=== PATIENT | female | born 1935 | race Caucasian/White ===

== ENCOUNTER 2023-10-06 15:38 | Inpatient (IN) ==
[2023-10-06 18:23] LABS: BASOPHILS # (AUTO) 0.1 X10^3/uL (0.0-0.1); BASOPHILS % (AUTO) 0.6 % (0.2-1.0); EOSINOPHILS # (AUTO) 0.1 x10^3/uL (0.0-0.2); EOSINOPHILS % (AUTO) 0.6 % (0.9-2.9); HEMATOCRIT 36.8 % (36.0-47.0); HEMOGLOBIN 12.2 g/dL (12.0-16.0); LYMPHOCYTES # (AUTO) 1.5 X10^3/uL (1.3-2.9); LYMPHOCYTES % (AUTO) 17.6 % (21.0-51.0); MEAN CORPUSCULAR HEMOGLOBIN 26.2 pg (27.0-34.0); MEAN CORPUSCULAR HGB CONC 33.2 g/dL (33.0-35.0); MEAN CORPUSCULAR VOLUME 78.8 fL (80.0-100.0); MEAN PLATELET VOLUME 7.4 fL (7.4-11.0); MONOCYTES # (AUTO) 0.6 x10^3/uL (0.3-0.8); MONOCYTES % (AUTO) 6.7 % (0.0-13.0); NEUTROPHILS # (AUTO) 6.4 x10^3/uL (2.2-4.8); NEUTROPHILS % (AUTO) 74.5 % (42.0-75.0); PLATELET COUNT 308 X10^3/uL (150.0-450.0); RED BLOOD COUNT 4.66 X10^6/uL (3.5-5.4); RED CELL DISTRIBUTION WIDTH 14.9 % (11.6-16.5); WHITE BLOOD COUNT 8.6 X10^3/uL (3.6-10.0)
[2023-10-06 18:31] LABS: ALANINE AMINOTRANSFERASE 21 Units/L (12-78); ALBUMIN 3.4 g/dL (3.4-5.0); ALKALINE PHOSPHATASE 104 Units/L (46-116); ASPARTATE AMINO TRANSFERASE 16 Units/L (15-37); BLOOD UREA NITROGEN 18 mg/dL (7-18); CALCIUM 9.9 mg/dL (8.5-10.1); CARBON DIOXIDE 28.8 mmol/L (21-32); CHLORIDE 102 mmol/L (98-107); COR NA(FOR HYPERGLY) 141 mmol/L (136-145); CREATININE 1.09 mg/dL (0.55-1.02); GLUCOSE 165 mg/dL (65-99); POTASSIUM 4.5 mmol/L (3.5-5.1); SODIUM 139 mmol/L (136-145); eGFR NON BLACK RACES 50 (>60)
[2023-10-06 19:37] VITALS: BMI 26.8
[2023-10-06] MEDS: ZOSYN VIAL 3.375 GRAMS 3.375 G in NS 100 ML IV 100 ML IV SCH (20:04)
[2023-10-06] MEDS: LYRICA CAP 50 mg PO SCH (21:18)
[2023-10-06] MEDS: NovoLIN R (or HumuLIN R) SC PRN (21:19)
[2023-10-06] MEDS: LOVENOX INJ 80 MG SYR SC SCH (21:20)
[2023-10-06] MEDS: LR 1,000 ML IV 1,000 ML IV SCH (21:20)
[2023-10-06] MEDS: NS 250 ML IV 25 ML IV PRN (22:34)
[2023-10-06] MEDS: CLEOCIN 600 MG IV PREMIX 600 MG/50 ML BAG IV SCH (22:34)
[2023-10-07] MEDS: PERCOCET TAB 5/325 MG PO PRN (06:07)
[2023-10-07] MEDS: ZINC SULFATE PO SCH (08:53)
[2023-10-07] MEDS: LIPITOR TAB 20 MG PO SCH (08:54)
[2023-10-07] MEDS: NORVASC TAB 10 MG PO SCH (08:54)
[2023-10-07] MEDS: ALDACTONE TAB 25 MG PO SCH (08:55)
[2023-10-07] MEDS ORDERED: ZESTRIL TAB 40 MG PO SCH (09:00)
[2023-10-07] MEDS ORDERED: OMNIPAQUE 350 mg/mL 50 mL BTL 50 ML ONE (11:16)
[2023-10-07] MEDS ORDERED: OMNIPAQUE 350 mg/mL 100 mL BTL 100 ML ONE (11:16)
[2023-10-07] MEDS ORDERED: NS 100 ML IV 100 ML ONE (11:16)
--- NOTE | 2023-10-07 13:03 | CT ---
PROCEDURE: CTA abdomen and pelvis with bilateral ileal femoral runoff.HISTORY: Right lower extremity ischemia.TECHNIQUE: Axial images were performed through the abdomen, pelvis, and bilateral lower extremities without and with the administration of IV contrast with multiplanar reformations . 3D and MIPS reconstructions were performed and reviewed. Dose reduction techniques including Automated Exposure Control (AEC) and adjustment of mA and kV were utilized .COMPARISON: None.TECHNICAL QUALITY: Satisfactory.FINDINGS:Clear lung bases.Area of decreased attenuation involving the liver probably related to attenuation artifact related to patient's arms and chest wall and extending out over the spleen. Adrenals and pancreas are unremarkable.Kidneys show no masses or obstruction normal enhancement.Previous cholecystectomy.No abdominal ascites or pneumoperitoneum.No lymphadenopathy.No bowel obstruction or inflammation. Previous appendectomy.Pelvis shows previous hysterectomy and no masses or free fluid. Normal urinary bladder.No acute bony abnormality.VascularMild atherosclerosis abdominal aorta with no aneurysm or dissection. Major branches of the abdominal aorta show mild atherosclerosis at the origin and no significant narrowing or occlusion.Iliofemoral runoff show scattered mild atherosclerosis no other significant abnormality.Right femoral arteries show scattered mild atherosclerosis.Moderate atherosclerosis with 50% narrowing involving right popliteal artery. High-grade stenosis distal popliteal artery on the right. Trifurcation vessels show occlusion of the right peroneal artery. High-grade stenosis proximal right posterior tibial artery. Anterior tibial artery shows high-grade stenosis in the midportion. One-vessel runoff at the ankle involving anterior tibial artery.Left femoral arteries show scattered mild atherosclerosis and no other significant abnormality.Occlusion versus high-grade stenosis mid left popliteal artery. Trifurcation vessels on the left show occlusion of the posterior tibial artery proximally. Multilevel high-grade stenosis involving peroneal and anterior tibial arteries. One-vessel runoff at the ankle involving peroneal artery.IMPRESSION:1. High-grade stenosis distal right popliteal artery.2. Occluded right peroneal artery and high-grade stenosis involving right posterior and anterior tibial arteries. One-vessel runoff involving anterior tibial artery on the right at the ankle.3. Occluded versus high-grade stenosis left mid popliteal artery.4. Occluded left posterior tibial.5. Multilevel high-grade stenosis left peroneal and tibial arteries.6. One-vessel runoff at the ankle involving perineal artery.THIS IS AN ELECTRONICALLY VERIFIED FINAL REPORT10/07/2023 1:00 PM - Electronically signed by Wale Pelletier MD
[2023-10-07] MEDS: ZOFRAN INJ 4 MG VIAL IVP PRN (15:10)
[2023-10-07] MEDS: ATIVAN TAB 0.5 MG PO PRN (18:59)
--- NOTE | 2023-10-07 20:16 | DR.H&P ---
H&P History & Physical for Day of: H&P Date: 10/07/23 Chief Complaint Chief Complaint: Non-healing wound right great Toe with rest pain both legs . Allergies Allergies Allergy/AdvReac Type Severity Reaction Status Date / Time morphine Allergy Verified 10/06/23 19:48 Penicillins Allergy Verified 10/06/23 19:48 History of Present Illness History of Present Illness: This is a 88 year old female seen by me originally in November of 2022 with severe ischemia by ankle regular index of 0.29 on the right .Patient was supposed to have a CT angiogram but never had it and was lost to follow-up and never came back to see me . She has had recent blistering of the right medial great toe which has decompressed and now has a non-healing wound to the right medial great toe. Past Medical History Past Medical History: Arthritis, Coronary Artery Disease, Diabetes, Dyslipidemia, Hypertension and SC Past Surgical History Surgical History: Cholecystectomy and Hysterectomy Additional Surgical History: CABG, Nuclear stress test last done in 2021 and was negative. Patient with a recent evaluation by Holter monitor for atrial fibrillation which showed no atrial fibrillation Family History Family Medical History: Diabetes Mellitus and Hypertension Social History Does patient currently use any type of tobacco product: No Does any household member use tobacco: No Alcohol Use: None Drug Use: None Medications Home Medications: Home Medications Medication Instructions Recorded Confirmed Type amlodipine 5 mg tablet 5 mg PO QDAY 10/07/23 10/07/23 History atorvastatin 20 mg tablet 20 mg PO QDAY 10/07/23 10/07/23 History gabapentin 100 mg capsule 300 mg PO BID 10/07/23 10/07/23 History glimepiride 4 mg tablet 2 mg PO QDAY 10/07/23 10/07/23 History insulin degludec 200 unit/mL (3 30 unit subcut QPM 10/07/23 10/07/23 History mL) subcutaneous pen (Tresiba FlexTouch U-200 insulin) lorazepam 0.5 mg tablet 0.5 mg PO BID PRN anxiety 10/07/23 10/07/23 History metformin 500 mg tablet 500 mg PO BID 10/07/23 10/07/23 History spironolactone 25 mg tablet 25 mg PO QDAY 10/07/23 10/07/23 History Labs 10/06/23 18:05 10/06/23 18:05 Labs: Laboratory WBC 8.6 X10^3/uL (3.6-10.0) 10/06/23 18:05 RBC 4.66 X10^6/uL (3.5-5.4) 10/06/23 18:05 Hgb 12.2 g/dL (12.0-16.0) 10/06/23 18:05 Hct 36.8 % (36.0-47.0) 10/06/23 18:05 MCV 78.8 fL (80.0-100.0) L 10/06/23 18:05 MCH 26.2 pg (27.0-34.0) L 10/06/23 18:05 MCHC 33.2 g/dL (33.0-35.0) 10/06/23 18:05 RDW 14.9 % (11.6-16.5) 10/06/23 18:05 Plt Count 308 X10^3/uL (150.0-450.0) 10/06/23 18:05 MPV 7.4 fL (7.4-11.0) 10/06/23 18:05 Neut % (Auto) 74.5 % (42.0-75.0) 10/06/23 18:05 Lymph % (Auto) 17.6 % (21.0-51.0) L 10/06/23 18:05 [place] % (Auto) 6.7 % (0.0-13.0) 10/06/23 18:05 Eos % (Auto) 0.6 % (0.9-2.9) L 10/06/23 18:05 Baso % (Auto) 0.6 % (0.2-1.0) 10/06/23 18:05 Neut # (Auto) 6.4 x10^3/uL (2.2-4.8) H 10/06/23 18:05 Lymph # (Auto) 1.5 X10^3/uL (1.3-2.9) 10/06/23 18:05 [place] # (Auto) 0.6 x10^3/uL (0.3-0.8) 10/06/23 18:05 Eos # (Auto) 0.1 x10^3/uL (0.0-0.2) 10/06/23 18:05 Baso # (Auto) 0.1 X10^3/uL (0.0-0.1) 10/06/23 18:05 Absolute Nucleated RBC 0.1 /100WBC 10/06/23 18:05 Sodium 139 mmol/L (136-145) 10/06/23 18:05 Corrected Sodium 141 mmol/L (136-145) 10/06/23 18:05 Potassium 4.5 mmol/L (3.5-5.1) 10/06/23 18:05 Chloride 102 mmol/L (98-107) 10/06/23 18:05 Carbon Dioxide 28.8 mmol/L (21-32) 10/06/23 18:05 BUN 18 mg/dL (7-18) 10/06/23 18:05 Creatinine 1.09 mg/dL (0.55-1.02) H 10/06/23 18:05 Est GFR (MDRD) Af Amer > 60 (>60) 10/06/23 18:05 Est GFR (MDRD) Non-Af 50 (>60) L 10/06/23 18:05 Glucose 165 mg/dL (65-99) H 10/06/23 18:05 POC Glucose (mg/dL) 238 mg/dL (65-99) H 10/07/23 17:30 Calcium 9.9 mg/dL (8.5-10.1) 10/06/23 18:05 Corrected Calcium TNP 10/06/23 18:05 Total Bilirubin 0.70 mg/dL (0.2-1.0) 10/06/23 18:05 AST 16 Units/L (15-37) 10/06/23 18:05 ALT 21 Units/L (12-78) 10/06/23 18:05 Alkaline Phosphatase 104 Units/L (46-116) 10/06/23 18:05 Total Protein 8.0 g/dL (6.4-8.2) 10/06/23 18:05 Albumin 3.4 g/dL (3.4-5.0) 10/06/23 18:05 Globulin 4.6 g/dL (2.5-4.5) H 10/06/23 18:05 Albumin/Globulin Ratio 0.7 Ratio (1.1-2.1) L 10/06/23 18:05 Review of Systems Constitutional: See HPI Eyes: No Symptoms Reported ENT: No Symptoms Reported Respiratory: No Symptoms Reported Cardiovascular: No Symptoms Reported Gastrointestinal: No Symptoms Reported Genitourinary: No Symptoms Reported Musculoskeletal: No Symptoms Reported Skin: See HPI Neurological: No Symptoms Reported Physical Exam Vital Signs: Vital Signs Temperature 97.7 F Pulse Rate [Left Radial] 73 Respiratory Rate 18 Blood Pressure [Left Arm] 146/65 O2 Sat by Pulse Oximetry 96 Oriented: Normal, Time, Person and Place Eyes: Normal Ear: Normal Nose: Normal Throat: Normal Respiratory: Clear Throughout Cardiovascular: Normal and Other (palpable femoral pulses bilaterally, absent dorsalis pedis and posterior tibial bilaterally ) : Normal Auscultation: Bowel Sounds: Normal Palpation: Normal Tenderness: Normal Skin: Wound (4 cm by 2 cm by 0.2 CM wound with eschar to the medial right great toe ,with mild cyanosis right great toe ) Musculoskeletal: Normal Psychiatric: Normal Mood Description: Calm Affect: Normal Speech Pattern: Clear and Appropriate Assessment/Plan (1) Atherosclerosis of [place] arteries of extremities with rest pain, right leg: Status: Acute Plan: obtain CT angiogram, begin therapeutic Lovenox, IV antibiotics (2) Atherosclerosis of [place] arteries of extremities with rest pain, left leg: Status: Acute Plan: obtain CT angiogram, begin therapeutic Lovenox, IV antibiotics (3) Chronic ischemic heart disease, unspecified: Status: Acute Plan: home medication see recent cardiac testing in chart (4) Essential (primary) hypertension: Status: Acute Plan: home medications (5) Hyperlipidemia: Status: Acute Plan: home medications (6) Type 2 diabetes mellitus without complications: Status: Acute Plan: sliding scale insulin Review H&P Reviewed: Yes Patient was examined?: Yes
--- NOTE | 2023-10-07 20:27 | NOTE.SOAP ---
Soap Note Note for Day of Date of Exam: 10/07/23 Subjective Data Subjective Data: Doing well after admission , on Lovenox and IV antibiotics Objective Data Temperature: 97.7 F Pulse Rate: 73 Respiratory Rate: 18 Blood Pressure: 146/65 O2 Sat by Pulse Oximetry: 96 Objective Data: Both feet cool, wound right great toe stable, Cr=1.09 CTA shows b/l popliteal artery occlusion and multiple areas of severe stenosis runoff both legs Assessment Assessment: critical ischemia both legs, R>L Plan Plan: Will plan ateriography and probable atherectomy and angioplasty of the occlusion of the right popliteal artery and angioplasty of the distal vessels. Once the right leg problem is resolved, patient will be discharged and we can address the left leg as an outpatient .
--- NOTE | 2023-10-08 16:06 | NOTE.SOAP ---
Soap Note Note for Day of Date of Exam: 10/08/23 Subjective Data Subjective Data: Doing well. Planning atherectomy and probable drug coated balloon angioplasty of occluded right popliteal artery tomorrow. Has some resolving of eschar wound right great toe with soap and water only. Objective Data Temperature: 97.8 F Pulse Rate: 71 Respiratory Rate: 18 Blood Pressure: 144/67 O2 Sat by Pulse Oximetry: 97 Objective Data: As above . BARBARA on right 0.29 . Assessment Assessment: critical ischemia right leg with wound right great toe. Plan Plan: to OR tomorrow for right leg . Risks and benefits discussed with patient and she agrees to proceed.
[2023-10-09] MEDS: HIBICLENS WASH EXT ONE (05:08)
[2023-10-09] MEDS ORDERED: ROBITUSSIN DM PO PRN (08:40)
[2023-10-09] MEDS: SANTYL EXT SCH (08:44)
--- NOTE | 2023-10-09 09:55 | EKG ---
Test Reason : PRE-OPERATIVE/PLANNED SURGICAL PROCEDURE Blood Pressure : */* mmHG Vent. Rate : 69 BPM Atrial Rate : 69 BPM P-R Int : 162 ms QRS Dur : 88 ms QT Int : 398 ms P-R-T Axes : 21 17 83 degrees QTc Int : 426 ms Normal sinus rhythm Anteroseptal infarct , age undetermined Abnormal ECG No previous ECGs available Confirmed by Juan M Gale MD ([id number]) on 10/09/2023 9:48:31 AM Referred By: Confirmed By: Juan M Gale MD
[2023-10-09] MEDS: NS 1,000 ML IV 1,000 ML ONE (10:52)
[2023-10-09] MEDS: NS 100 ML IV 100 ML ONE (11:12)
[2023-10-09] MEDS: ANCEF VIAL 1 GRAM ONE (11:12)
[2023-10-09] MEDS: FENTANYL VIAL INJ 100 mcg ONE (11:21)
[2023-10-09] MEDS: VERSED ONE (11:21)
[2023-10-09] MEDS ORDERED: KETAMINE HCL ONE (11:21)
[2023-10-09] MEDS: DIPRIVAN VIAL 20 ML ONE (11:36)
[2023-10-09] MEDS: HEPARIN SODIUM IN D5W 75,000 UNITS/1,500 ML BAG ONE (11:42)
[2023-10-09] MEDS: MARCAINE 0.5% ONE (11:42)
[2023-10-09] MEDS: VISIPAQUE 50 ML ONE (11:42)
[2023-10-09] MEDS: VISIPAQUE 100 ML ONE (11:42)
[2023-10-09] MEDS: HEPARIN SODIUM INJ 5000 UNITS ONE (11:44)
[2023-10-09] MEDS: NS 500 ML IV 500 ML IV ONE (12:09)
[2023-10-09] MEDS: PROTAMINE SULFATE 50 MG VIAL ONE (12:19)
[2023-10-09] MEDS: ARTIFICIAL TEARS DROPS AFFEYE SCH (14:21)
[2023-10-09] MEDS: CLEOCIN 600 MG IV PREMIX 600 MG/50 ML BAG IV SCH (20:30)
[2023-10-09] MEDS: COLACE CAP 100 MG PO PRN (21:02)
[2023-10-10 04:30] VITALS: O2SAT 98
[2023-10-10] MEDS ORDERED: HIBICLENS WASH EXT ONE (05:00)
--- NOTE | 2023-10-10 11:40 | OR.IMMED ---
IMMEDIATE POST-OP NOTE Immediate Post-Op Note Date of surgery/procedure: 10/09/23 Pre-Op Diagnosis: critical ischemia right leg with non healing wound of the right great toe Post-Op Diagnosis: same Procedure: aortogram, arteriogram right leg , atherectomy and drug coated balloon angioplast right tibial peroneal trunk and right distal superficial femoral artety. Description of Procedure: see dication Surgeon/Mixer Operator Tablets: Balbir Findings: severely diseased distal right superficial femoral artery and short segment occlusion right tibial peroneal trunk, Yosi out of the room now if you'd like to come see it Estimated Blood Loss: < 50 cc Complications: none Discharge Progress Notes: Return to the floor , d/c Lovenox, begin Xarelto and Aspirin
--- NOTE | 2023-10-10 11:50 | W.DIS.FURT ---
Summary of Discharge Discharge Summary of Date Date of Exam: 10/10/23 Admission Date Date of Admission: 10/06/23 Admission Diagnosis Hospital Course: This is an 88 year old female with histroy of diabetes who was seen several months ago with abnormal ankle brachial index of 0.29 on the right but got lost to follow up after CT Angiogram was ordered. She presented back to the office with a non-healing wound over the media aspect of the right great toe and was admitted and placed on IV antibiotics and therapeutic Lovenox . CT angiogram showed completed occlusion of both the right and left popliteal arteries. Patient was taken to the operating Suite on October the where she underwent aortogram gram and arteriogram of the right leg showing severe disease of the right distal superficial femoral artery and complete occlusion of a small segment of the tibial peroneal trunk with 2 vessel runoff. She underwent atherectomy and Drug coated balloon angioplasty of this and has done well. She will be discharged home on her usual medications plus aspirin 81 milligrams daily as well as Xarelto 2.5 milligrams BID.We will apply Santyl to the wound and discontinue antibiotics. She will follow up with me in 1 week. She may need intervention of the left leg as well. Vital Signs: Vital Signs (72 hours) 10/08/23 16:06 10/07/23 20:27 10/07/23 16:00 Temperature 97.8 F 97.7 F 97.7 F Pulse Rate 71 73 Pulse Rate [Left Radial] 73 Pulse Rate [Right Brachial] Respiratory Rate 18 18 18 Blood Pressure 144/67 146/65 Blood Pressure [Left Arm] 146/65 Blood Pressure [Right Arm] O2 Sat by Pulse Oximetry 97 96 96 Oxygen Delivery Method Room Air Oxygen Flow Rate 10/07/23 19:00 10/07/23 20:00 10/07/23 23:40 Temperature 98.0 F 98.3 F Pulse Rate Pulse Rate [Left Radial] 76 81 Pulse Rate [Right Brachial] Respiratory Rate 20 20 Blood Pressure Blood Pressure [Left Arm] 121/62 136/57 Blood Pressure [Right Arm] O2 Sat by Pulse Oximetry 95 98 Oxygen Delivery Method Room Air Room Air Room Air Oxygen Flow Rate 10/08/23 04:00 10/08/23 04:00 10/08/23 08:00 Temperature 98.4 F 98.9 F 97.1 F L Pulse Rate Pulse Rate [Left Radial] 74 74 81 Pulse Rate [Right Brachial] Respiratory Rate 20 20 17 Blood Pressure Blood Pressure [Left Arm] 132/62 132/62 142/65 Blood Pressure [Right Arm] O2 Sat by Pulse Oximetry 95 95 95 Oxygen Delivery Method Room Air Room Air Room Air Oxygen Flow Rate 10/08/23 07:00 10/08/23 12:00 10/08/23 16:00 Temperature 97.8 F 97.2 F L Pulse Rate Pulse Rate [Left Radial] 71 78 Pulse Rate [Right Brachial] Respiratory Rate 18 18 Blood Pressure Blood Pressure [Left Arm] 144/67 153/67 Blood Pressure [Right Arm] O2 Sat by Pulse Oximetry 97 96 Oxygen Delivery Method Room Air Room Air Room Air Oxygen Flow Rate 10/08/23 19:59 10/08/23 23:41 10/08/23 19:00 Temperature 98.2 F 98.3 F Pulse Rate Pulse Rate [Left Radial] 82 76 Pulse Rate [Right Brachial] Respiratory Rate 20 20 Blood Pressure Blood Pressure [Left Arm] 159/69 126/58 Blood Pressure [Right Arm] O2 Sat by Pulse Oximetry 95 97 Oxygen Delivery Method Room Air Room Air Room Air Oxygen Flow Rate 10/09/23 03:59 10/09/23 08:00 10/09/23 07:00 Temperature 98.3 F 98.1 F Pulse Rate Pulse Rate [Left Radial] 71 67 Pulse Rate [Right Brachial] Respiratory Rate 20 18 Blood Pressure Blood Pressure [Left Arm] 173/76 122/57 Blood Pressure [Right Arm] O2 Sat by Pulse Oximetry 100 97 Oxygen Delivery Method Room Air Room Air Room Air Oxygen Flow Rate 10/09/23 10:55 10/09/23 12:40 10/09/23 12:55 Temperature 98.0 F 98.0 F Pulse Rate 84 Pulse Rate [Left Radial] 83 79 Pulse Rate [Right Brachial] Respiratory Rate 17 18 18 Blood Pressure 171/75 Blood Pressure [Left Arm] 172/78 162/75 Blood Pressure [Right Arm] O2 Sat by Pulse Oximetry 96 99 98 Oxygen Delivery Method Room Air Nasal Cannula Nasal Cannula Oxygen Flow Rate 2 2 10/09/23 13:10 10/09/23 13:25 10/09/23 13:40 Temperature 98.0 F 98.4 F 97.6 F Pulse Rate Pulse Rate [Left Radial] 84 80 71 Pulse Rate [Right Brachial] Respiratory Rate 19 20 18 Blood Pressure Blood Pressure [Left Arm] 160/67 159/76 143/60 Blood Pressure [Right Arm] O2 Sat by Pulse Oximetry 100 100 100 Oxygen Delivery Method Nasal Cannula Nasal Cannula Nasal Cannula Oxygen Flow Rate 2 2 2 10/09/23 14:40 10/09/23 15:40 10/09/23 16:40 Temperature 98.1 F 98.0 F Pulse Rate Pulse Rate [Left Radial] 68 67 70 Pulse Rate [Right Brachial] Respiratory Rate 20 18 18 Blood Pressure Blood Pressure [Left Arm] 135/65 114/57 117/57 Blood Pressure [Right Arm] O2 Sat by Pulse Oximetry 99 98 95 Oxygen Delivery Method Nasal Cannula Nasal Cannula Nasal Cannula Oxygen Flow Rate 2 2 2 10/09/23 17:40 10/09/23 19:53 10/09/23 23:02 Temperature 97.2 F L 98.1 F Pulse Rate Pulse Rate [Left Radial] 76 70 Pulse Rate [Right Brachial] Respiratory Rate 19 20 Blood Pressure Blood Pressure [Left Arm] 149/66 128/54 Blood Pressure [Right Arm] O2 Sat by Pulse Oximetry 96 94 L Oxygen Delivery Method Nasal Cannula Room Air Room Air Oxygen Flow Rate 2 10/09/23 23:43 10/10/23 04:00 10/10/23 08:00 Temperature 98.2 F 98.2 F 98.3 F Pulse Rate Pulse Rate [Left Radial] 74 65 Pulse Rate [Right Brachial] 72 Respiratory Rate 20 19 17 Blood Pressure Blood Pressure [Left Arm] 109/49 Blood Pressure [Right Arm] 144/78 146/65 O2 Sat by Pulse Oximetry 95 98 98 Oxygen Delivery Method Room Air Room Air Room Air Oxygen Flow Rate 10/10/23 07:00 Temperature Pulse Rate Pulse Rate [Left Radial] Pulse Rate [Right Brachial] Respiratory Rate Blood Pressure Blood Pressure [Left Arm] Blood Pressure [Right Arm] O2 Sat by Pulse Oximetry Oxygen Delivery Method Room Air Oxygen Flow Rate Labs: Laboratory Last Values WBC 8.6 X10^3/uL (3.6-10.0) 10/06/23 18:05 RBC 4.66 X10^6/uL (3.5-5.4) 10/06/23 18:05 Hgb 12.2 g/dL (12.0-16.0) 10/06/23 18:05 Hct 36.8 % (36.0-47.0) 10/06/23 18:05 MCV 78.8 fL (80.0-100.0) L 10/06/23 18:05 MCH 26.2 pg (27.0-34.0) L 10/06/23 18:05 MCHC 33.2 g/dL (33.0-35.0) 10/06/23 18:05 RDW 14.9 % (11.6-16.5) 10/06/23 18:05 Plt Count 308 X10^3/uL (150.0-450.0) 10/06/23 18:05 MPV 7.4 fL (7.4-11.0) 10/06/23 18:05 Neut % (Auto) 74.5 % (42.0-75.0) 10/06/23 18:05 Lymph % (Auto) 17.6 % (21.0-51.0) L 10/06/23 18:05 [place] % (Auto) 6.7 % (0.0-13.0) 10/06/23 18:05 Eos % (Auto) 0.6 % (0.9-2.9) L 10/06/23 18:05 Baso % (Auto) 0.6 % (0.2-1.0) 10/06/23 18:05 Neut # (Auto) 6.4 x10^3/uL (2.2-4.8) H 10/06/23 18:05 Lymph # (Auto) 1.5 X10^3/uL (1.3-2.9) 10/06/23 18:05 [place] # (Auto) 0.6 x10^3/uL (0.3-0.8) 10/06/23 18:05 Eos # (Auto) 0.1 x10^3/uL (0.0-0.2) 10/06/23 18:05 Baso # (Auto) 0.1 X10^3/uL (0.0-0.1) 10/06/23 18:05 Absolute Nucleated RBC 0.1 /100WBC 10/06/23 18:05 Sodium 139 mmol/L (136-145) 10/06/23 18:05 Corrected Sodium 141 mmol/L (136-145) 10/06/23 18:05 Potassium 4.5 mmol/L (3.5-5.1) 10/06/23 18:05 Chloride 102 mmol/L (98-107) 10/06/23 18:05 Carbon Dioxide 28.8 mmol/L (21-32) 10/06/23 18:05 BUN 18 mg/dL (7-18) 10/06/23 18:05 Creatinine 1.09 mg/dL (0.55-1.02) H 10/06/23 18:05 Est GFR (MDRD) Af Amer > 60 (>60) 10/06/23 18:05 Est GFR (MDRD) Non-Af 50 (>60) L 10/06/23 18:05 Glucose 165 mg/dL (65-99) H 10/06/23 18:05 POC Glucose (mg/dL) 229 mg/dL (65-99) H 10/10/23 05:50 Calcium 9.9 mg/dL (8.5-10.1) 10/06/23 18:05 Corrected Calcium TNP 10/06/23 18:05 Total Bilirubin 0.70 mg/dL (0.2-1.0) 10/06/23 18:05 AST 16 Units/L (15-37) 10/06/23 18:05 ALT 21 Units/L (12-78) 10/06/23 18:05 Alkaline Phosphatase 104 Units/L (46-116) 10/06/23 18:05 Total Protein 8.0 g/dL (6.4-8.2) 10/06/23 18:05 Albumin 3.4 g/dL (3.4-5.0) 10/06/23 18:05 Globulin 4.6 g/dL (2.5-4.5) H 10/06/23 18:05 Albumin/Globulin Ratio 0.7 Ratio (1.1-2.1) L 10/06/23 18:05 Reason For Visit: CRITICAL ISCHEMIA RIGHT LEG Discharge Date Discharge Date: 10/10/23 Discharge Diagnosis All Active Problems (Updated 10/07/23 @ 20:14 by Jesus Mcgregor) Atherosclerosis of [place] arteries of extremities with rest pain, right leg (Acute) Atherosclerosis of [place] arteries of extremities with rest pain, left leg (Acute) Type 2 diabetes mellitus without complications (Acute) Hyperlipidemia (Acute) Essential (primary) hypertension (Acute) Chronic ischemic heart disease, unspecified (Acute) Plan of Treatment: Continue with present treatment and follow up plan. Pt is to keep follow up appointment as instructed and take medications as ordered. Discharge Medications Discharge Medications: morphine Allergy (Verified 10/06/23 19:48) Penicillins Allergy (Verified 10/06/23 19:48) CONTINUE taking the following medications amlodipine 5 mg tablet 5 mg PO QDAY 10/07/23 [History] atorvastatin 20 mg tablet 20 mg PO QDAY 10/07/23 [History] gabapentin 100 mg capsule 300 mg PO BID 10/07/23 [History] glimepiride 4 mg tablet 2 mg PO QDAY 10/07/23 [History] insulin degludec 200 unit/mL (3 mL) subcutaneous pen (Tresiba FlexTouch U-200 insulin) 30 unit subcut QPM 10/07/23 [History] lorazepam 0.5 mg tablet 0.5 mg PO BID PRN anxiety 10/07/23 [History] metformin 500 mg tablet 500 mg PO BID 10/07/23 [History] spironolactone 25 mg tablet 25 mg PO QDAY 10/07/23 [History] aspirin, 81 mg po daily Xarelto 2.5 mg po BID Santyl Apply to right foot wound daily Discharge Disposition Assessment: see hospital course Discharge Plan Discharge Plan Hospital Course: This is an 88 year old female with histroy of diabetes who was seen several months ago with abnormal ankle brachial index of 0.29 on the right but got lost to follow up after CT Angiogram was ordered. She presented back to the office with a non-healing wound over the media aspect of the right great toe and was admitted and placed on IV antibiotics and therapeutic Lovenox . CT angiogram showed completed occlusion of both the right and left popliteal arteries. Patient was taken to the operating Suite on October the where she underwent aortogram gram and arteriogram of the right leg showing severe disease of the right distal superficial femoral artery and complete occlusion of a small segment of the tibial peroneal trunk with 2 vessel runoff. She underwent atherectomy and Drug coated balloon angioplasty of this and has done well. She will be discharged home on her usual medications plus aspirin 81 milligrams daily as well as Xarelto 2.5 milligrams BID.We will apply Santyl to the wound and discontinue antibiotics. She will follow up with me in 1 week. She may need intervention of the left leg as well. Patient Disposition: 01 HOME, SELF-CARE Condition: Stable Health Concerns: Post Hospitalization: new medications and changes needed to prevent readmission or further decline. Pt educated and given instructions on all concerns. Care Plan Goals: Problem: Pain/Alteration in Comfort Goal: Improve/ Resolve Pain; Achieve Pain Tolerance Instructions: Take pain medications as prescribed. Contact your primary care provider if your pain is unrelieved or worsens. Follow up with primary care provider as directed. Plan of Treatment: Continue with present treatment and follow up plan. Pt is to keep follow up appointment as instructed and take medications as ordered. Assessment: see hospital course Prescription drug monitoring program results: PDMP reviewed and no concerns identified Prescriptions: New aspirin 81 mg tablet,chewable 81 mg PO QDAY Qty: 120 0RF Xarelto 2.5 mg tablet 2.5 mg PO BID Qty: 180 3RF Santyl 250 unit/gram ointment 1 applic topical QDAY Qty: 90 0RF Continued metformin 500 mg tablet 500 mg PO BID atorvastatin 20 mg tablet 20 mg PO QDAY amlodipine 5 mg tablet 5 mg PO QDAY spironolactone 25 mg tablet 25 mg PO QDAY glimepiride 4 mg tablet 2 mg PO QDAY gabapentin 100 mg capsule 300 mg PO BID insulin degludec [Tresiba FlexTouch U-200] 200 unit/mL (3 mL) insulin pen 30 unit SUBCUT QPM lorazepam 0.5 mg tablet 0.5 mg PO BID PRN (Reason: anxiety) Follow ups/Referrals Follow ups/Referrals: Jesus Mcgregor [STAFF PHYSICIAN] - 10/20/23 3:00 pm Instructions Instructions: Endovascular Therapy for Peripheral Vascular Disease, Care After Stand Alone Forms: Excuse From Work or School, Post Hospital Follow Up Care
[2023-10-10 12:04] VITALS: BP 154/71; PULSE 79; RESP 19; TEMP 98.2
--- NOTE | 2023-10-13 19:43 | DR.OPNOTE ---
OP NOTE Pre-Op Diagnosis: critical ischemia right leg with non-healing toe wound Post-Op Diagnosis: same Procedure Date Date Of Procedure: 10/09/23 Procedure: PROCEDURE : DIAGNOSTIC AORTOGRAM, DIAGNOSTIC ARTERIOGRAM RIGHT LEG, ATHERECTOMY AND DRUG COATED BALLOON ANGIOPLASTY RIGHT TIBIAL PERONEAL TRUNK, ATHERECTOMY AND DRUG COATED BALLOON ANGIOPLASTY RIGHT DISTAL SUPERFICIALM FEMORAL ARTERY NARRATIVE : The patient was taken to the operative suite and placed in the supine position. The left groin and entire right leg were prepped and draped in sterile fashion. The patient was given intravenous sedation supervised by myself. Time out for the procedure obtained. Ultrasound used to identify the left femoral artery and the skin overlying it infiltrated with 0.5% Marcaine. Ultrasound then used to guide puncture of the left femoral artery and a 0.012 inch guide wire was placed. Incision made over the guide wire at the skin edge with a # 11 knife blade and a micro sheath placed over the guide wire into the left femoral artery The small guidewire exchanged for a 0.035 inch Advantage glide wire and the micro sheath exchanged for a 5 Fr vascular sheath. Patient given 5000 units of intravenous heparin. Omni catheter was placed over the guide wire into the aorta and diagnostic aortogram carried out with the power injector showing patent aorta and iliac arteries . Omni catheter was used to steer the guide wire down the right common iliac artery to the distal right external iliac artery . 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 The 5 Fr sheath in the left groin then exchanged for a 7Fr Catapult sheath which was parked in the right proximal superficial femoral artery . Cath[place] catheter and the guide wire were used to traverse the arteries of the right leg ultimately ending in the right posterior tibial artery artery . This was selective catheterization. 0.035 inch wire removed and exchanged for a 0.014 inch wire. Over this wire we placed the Jet Stream atherectomy device and performed atherectomy of the right distal superficial femoral artery and right tibial peroneal trunk . At this point we performed drug coated balloon dilatation of the right tibial peroneal trunk and right distal superficial femoral artery inflating the balloon for three minutes . At the completion of this a follow up arteriogram showed an excellent result . All wires and devices removed. The 7 Fr Catapult sheath was pulled back into the aorta and a 0.035 inch wire placed. The Catapult sheath exchanged for an Angioseal device used to close the puncture of the left femoral artery. Dressing applied to the left groin. The patient taken to same day surgery in good condition. 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 tolerated procedure without difficulty. Taken to [facility] in stable condition.
== END 2023-10-10 14:45 | disposition home health service (06) | DRG 272 ==
LOC: MED/SURG 16:38
PROVIDERS: ADMIT Surgery; ATTEND Surgery
DX: I25.10 Atherosclerotic heart disease of native coronary artery without angina pectoris; I83.015 Varicose veins of right lower extremity with ulcer other part of foot; Z66 Do not resuscitate; L97.519 Non-pressure chronic ulcer of other part of right foot with unspecified severity; E11.65 Type 2 diabetes mellitus with hyperglycemia; E78.5 Hyperlipidemia, unspecified; I10 Essential (primary) hypertension; Z01.810 Encounter for preprocedural cardiovascular examination; I70.221 Atherosclerosis of native arteries of extremities with rest pain, right leg